=== PATIENT | female | born 1930 | race African-American/Black ===

== ENCOUNTER → 2016-06-09 | Outpatient (CLI) | payer MEDICARE, OTHER ==
[~2016-06-09] MED LIST: ACETAMINOPHEN-1 EAC4 ORAL; ACETAMINOPHEN325 M1 ORAL; AMLODIPINE BESYL5 MG ORAL; ANASTROZOLE1 MG PO; ARICEPT5 MG ORAL; COLACE100 MG ORAL; CYMBALTA30 MG ORAL; DURAGESIC1 EAC2 TDERMAL; FUROSEMIDE40 MG ORAL; IBUPROFEN600 MG ORAL; KLOR-CON 88 MEQ ORAL; MEDROL4 MG ORAL; MEGESTROL ACETA40 MG PO; NAMENDA10 MG ORAL; NITROFURANTOIN100 M2 ORAL; VITAMIN B-12500 MCG ORAL
--- NOTE | 2016-06-09 15:00 | Diagnostic Imaging Report ---
Clinical Indication: Cough, history of breast carcinoma Technique: Spiral acquisitions obtained through the chest. No IV contrast utilized, perforating physician at. Multiplanar reconstructions generated. Total dose length product 593 mGycm. CTDIvol(s) 6 mGy Comparison: 02/25/2016 Findings:Multiple irregular and nodular opacities are seen scattered throughout both lungs, most or all of which appear equivocally slightly more prominent than on the previous exam. No new lesions are demonstrated, however. No infiltrates, effusions or congestion demonstrated. The included thyroid is unremarkable. No mediastinal or hilar mass or adenopathy demonstrated. The heart size is normal. There is slightly less pericardial thickening or fluid anteriorly. 4.8 cm right breast mass with a calcification, adjacent 3.3 cm mass with a calcification all appear slightly increased in size from the previous study. Fusion hardware is seen in the lower cervical spine. Osteoblastic lesion involving the right side of the L1 vertebral body is again demonstrated. Left-sided T12 vertebral body hemangioma is again demonstrated.. Sclerotic lesion within the T12 vertebral body is unchanged. No new osseous abnormality demonstrated. Limited views of the upper abdomen demonstrate a large mass occupying most of the right hepatic lobe. This is not well visualized so comparison of dimensions is difficult that may be slightly larger than on the prior study. Granulomatous calcifications are seen within the liver and spleen. The left adrenal is diffusely bulky. There is suggestion of material layering dependently within the gallbladder, may represent sludge or small faint stones Impression: Multiple pulmonary parenchymal lesions as described, none new but most appearing equivocally slightly more prominent than on the prior study. The apparent difference is subtle and may not be real, and so it is possible that most or all these are benign and that the apparent increase in prominence could be artifactual. Nonetheless, the possibility of of any these representing enlarging quiescent neoplastic deposits cannot be excluded. Slight enlargement of right breast masses, as described, consistent with known breast carcinoma Equivocally slightly enlarged right lobe liver mass, consistent with enlarging metastasis Stable L1 vertebral body sclerotic lesion, consistent with an osseous sclerotic metastasis. T12 vertebral body lesion is unchanged, could represent a benign bone island or a metastasis Possible gallbladder sludge or small stones The CT scanner at [facility] is accredited by the [employer] and the scans are performed using protocols designed to limit radiation exposure to as low as reasonably achievable to attain images of sufficient resolution adequate for diagnostic evaluation.
--- NOTE | 2016-06-09 17:52 | Diagnostic Imaging Report ---
Indication: 85-year-old female with history of breast carcinoma with metastases Technique: Axial single shot fast spin echo breath hold, coronal single shot fast spin-echo breath hold, axial T2 FRFSE fat-saturated, 2-D thick slab MRCP, axial 2-D FIESTA fat-saturated, axial 3-D dual echo breath-hold, precontrast axial and postcontrast axial and coronal water weighted axial LAVA FLEX images of the abdomen Comparison: 02/26/2016 Findings: Again demonstrated is a large mass within the right hepatic lobe, currently measuring approximately 10 cm oblique transverse, by 7.2 cm oblique AP, by 8.1 cm craniocaudad, appearing slightly larger than on the previous study. This demonstrates peripheral enhancement, central non-enhancement, as previously. No other hepatic lesions are demonstrated. The gallbladder demonstrates suggestion of layering of small gallstones, in retrospect also evident previously. The common bile duct is dilated, measuring 10 mm diameter. This is unchanged from before, and no definite downstream obstruction lesion is demonstrated. The pancreatic duct is ectatic, similar to previously. The spleen, adrenals, left kidney are unremarkable. The right kidney demonstrates a tiny T2 hyperintense cyst coming off of the upper pole and another within the parenchyma. The included enteric structures are unremarkable. There is a trace right pleural effusion. Enhancing lesion of the right side of the L1 vertebral body is again demonstrated. Multiple enhancing masses are seen in the right breast, including a large central mass and multiple peripheral nodules, of which enhance to varying degrees, the more peripheral smaller nodules demonstrate more exuberant enhancement. Calcifications are seen within the larger masses. There is small pericardial effusion, also described on recent chest CT Impression: Enlarging right lobe liver mass, presumably a metastatic lesion given clinical history metastatic breast carcinoma Multiple enhancing right breast masses, also previously demonstrated, consistent with multifocal primary rest carcinoma. Trace right pleural effusion, not clearly evident on CT of earlier the same day Incidental finding of right renal cysts Small gallstones Dilated common bile duct, also previously demonstrated and unchanged. No definite downstream obstructive lesion, but occult downstream obstruction not completely excludable. Correlate with liver function tests, consider nuclear medicine hepatobiliary scan if there is high clinical suspicion for common bile duct obstruction. Enhancing mass in the right side of the L1 vertebral body, also evident previously, presumably a metastatic deposit Small pericardial effusion
--- NOTE | 2016-06-10 09:35 | Diagnostic Imaging Report ---
Indication: History of breast carcinoma with metastases throughout body Technique: Sagittal and axial T2 FRFSE, fat-saturated axial T2 FRFSE , axial T1 fast spin echo, coronal T2 fast spin-echo fat-saturated, oblique axial T2, pre-and postcontrast axial T1 fat-saturated images above Comparison: 02/26/2016 Findings: Again demonstrated are multiple lesions within the uterus which are low signal on all sequences. The endometrium were visualized appears unremarkable. Mild vertebral body marrow signal changes consistent with degenerative change are again noted. No pelvic sidewall mass or adenopathy demonstrated The rectum is less distended by stool and previously. Previously demonstrated Lynn catheter is no longer evident. The bladder appears unremarkable. The ovaries are not well demonstrated. Degenerative changes of the sacroiliac joint are again noted. The visualized enteric structures are grossly unremarkable. No unusual contrast enhancement is demonstrated Impression: No significant change, since prior study of 02 26 2016. No evidence of metastatic neoplasm in the pelvis. Fibroid uterus, also previously described Evidence of decreased rectal fecal impaction since prior exam Interim Lynn catheter removal
== END | disposition home or self-care (01) ==
LOC: MRI 09:20
DX: R05 Cough (principal); N63 Unspecified lump in breast; R16.0 Hepatomegaly, not elsewhere classified; C50.911 Malignant neoplasm of unspecified site of right female breast; D25.9 Leiomyoma of uterus, unspecified; I31.3 Pericardial effusion (noninflammatory); K80.80 Other cholelithiasis without obstruction; J90 Pleural effusion, not elsewhere classified; N28.1 Cyst of kidney, acquired
CPT/HCPCS: 71250; 72197; 74183; A9585